=== PATIENT | male | born 1980 | race Caucasian/White ===

== ENCOUNTER → 2019-05-31 | Outpatient (CLI) | payer OTHER ==
--- NOTE | 2019-05-31 19:12 | REP ---
REASON: Left sided pain and hematuria. There is a 5 mm size calcification superimposed over the superior pole of the left nephric silhouette. Seen between the transverse processes of L2 and 3 on the left there is a 6 mm sized calcification. A round calcification is seen in the right hemipelvis. The intestinal gas pattern is nonspecific. The imaged osseous structures are within normal limits. IMPRESSION:1. Possible left superior pole nephrolith as described above. 2. Possible left ureterolith as described above. 3. Probable right hemipelvic phlebolith. Electronically Signed by Aravind Blackburn DO 05/31/2019 07:50 P
== END ==
LOC: M LRY 18:37
PROVIDERS: ATTEND Physician Assistant
DX: R10.9 Unspecified abdominal pain (principal); R31.9 Hematuria, unspecified
CPT/HCPCS: 74018; 81002; 87086; G0463

== ENCOUNTER → 2019-05-31 | Outpatient (REF) | payer OTHER | LOC: M SFHCLERA 20:44 | PROVIDERS: ATTEND Physician Assistant | DX: R31.9 Hematuria, unspecified (principal) ==

== ENCOUNTER → 2020-09-09 | Outpatient (CLI) | payer OTHER ==
--- NOTE | 2020-09-10 02:18 | REP ---
INDICATION: STRAIN COMPARISON: None. TECHNIQUE: AP, lateral, bilateral oblique, and coned-down views of the lumbar spine. FINDINGS: Alignment and lordosis maintained. Vertebral bodies are intact. Disc spaces are relatively age-appropriate although very mild disc space narrowing at L4-5 and L5-S1 cannot be excluded. No acute fracture/compression injury or subluxation. No obvious spondylolysis or spondylolisthesis.. IMPRESSION: Essentially normal age-appropriate lumbosacral Spine series. Minimal endplate sclerosis and disc space narrowing at L5-S1, L4-5 cannot be excluded. <Electronically signed by Rupert Smith > 09/10/20 [id number]
== END ==
LOC: M WUC 11:53
PROVIDERS: ATTEND Physician Assistant
DX: S39.012A Strain of muscle, fascia and tendon of lower back, initial encounter (principal)